=== PATIENT | male | born 1970 | race Two or more races ===

== ENCOUNTER 2025-03-09 16:29 | Inpatient (IN) | payer OTHER ==
[~2025-03-09] VITALS: Ht 162.6 cm; Wt 106.1 kg
[2025-03-09] MEDS ORDERED: AMLODIPINE-OLM1 EAC2 PO (18:11)
--- NOTE | 2025-03-09 18:25 | NUR ---
PACIENTE ALERTA Y ORIENTADO X3 REFIERE VENIR CON REFERIDO MEDICO POR PROBLEMAS CARIDACOS. SE SOPHIA S/V Y SE REALIZA EKG [facility] Y SE UBICA EN LA 13 CON MONITOR CARDIACO [facility] ORDEN MEDICA.
[2025-03-09] MEDS ORDERED: FAMOTIDINE/PF 20 MG in 0.9 % SODIUM CHLORIDE 8 ML IV PUSH ONE (18:45)
[2025-03-09] MEDS ORDERED: ACETAMINOPHEN 500 MG GEL..CAP PO ONE ×2 (18:45→19:17)
[2025-03-09] MEDS ORDERED: LABETALOL HCL 20MG/4ML SYRINGE IV ONE (18:45)
[2025-03-09] MEDS ORDERED: 0.9 % SODIUM CHLORIDE 1,000 ML IV SCH (19:00)
[2025-03-09] MEDS ORDERED: FAMOTIDINE/PF 20 MG/2 ML VIAL ONE (19:17)
[2025-03-09] MEDS ORDERED: LABETALOL HCL 100 MG/20 ML ML ONE (19:17)
[2025-03-09 20:44] LABS: BASO % 0.9 % (0.1-1.2); EOS # 0.03 (0.04-0.54); EOS % 0.3 % (0.7-7.0); LYMPH # 1.68 (1.18-3.74); LYMPH % 18.4 % (19.3-53.1); MEAN PLATELET VOLUME 9.60 fl (9.4-12.4); MONO # 0.63 (0.24-0.82); MONO % 6.9 % (4.7-12.5); NEUT # 6.71 (1.56-6.13); NEUT % 73.3 % (34.0-71.1); RED CELL DISTRIBUTION WIDTH 12.9 % (11.6-14.4)
--- NOTE | 2025-03-09 20:49 | NUR ---
PTE EVALUADO POR EL DR. PIMENTEL, PRESENTANDO ILDEFONSO PRESION, SE COLECTAN MUESTRAS DE [facility] MEDIDAS ASEPTICAS Y SE ADMINISTRA MEDICACION [facility] ORDEN MEDICA. CLIENTE Y FAMILIAR SON ORIENTADOS SOBRE PROCEDIMIENMTOS REALIZADOS Y SEGUIMIENTO DE TRATAMIENTO EN ER. CLIENTE ALERTA Y ORIENTADO AL MOMENTO DE LA INTERVENCION POR RN.
[2025-03-09 21:18] LABS: INR 0.99
[2025-03-09 21:38] LABS: ALT/SGPT 35.0 U/L (12-78); AST/SGOT 18.0 U/L (15-37); BILIRUBIN TOTAL 0.38 mg/dL (0.3-1.2); BUN CREA RATIO 12.0 (7.0-25.0); CREATININE SERUM 1.38 mg/dL (0.70-1.30); GFR 54.11; GLOBULINA 4.4 G/DL (2.4-3.5); GLUCOSE FASTING 108.0 mg/dL (65-100); OSMOLALITY SERUM 285.0 MOSM/KG (275-295); PHOSPHOKINASE CREATININE 184.0 U/L (39-308)
[2025-03-09] MEDS ORDERED: ONDANSETRON HCL 4 MG in 0.9 % SODIUM CHLORIDE 50 ML IV PRN (22:45)
[2025-03-09] MEDS ORDERED: NITROGLYCERIN IN 5 % DEXTROSE 250 ML IV SCH (22:45)
[2025-03-09] MEDS ORDERED: ACETAMINOPHEN 325 MG TABLET PO PRN (22:45)
[2025-03-10 00:45] LABS: URINE APPEARANCE Clear; URINE BILIRRUBIN Negative (NEGATIVE); URINE BLOOD Negative; URINE COLOR Yellow; URINE GLUCOSE Negative (NEGATIVE); URINE KETONE Negative (NEGATIVE); URINE LEUKOCYTE Negative; URINE NITRATE Negative; URINE PROTEIN Trace (NEGATIVE); URINE UROBILINOGEN 0.2 E.U./dl
[2025-03-10 00:47] LABS: URINE BACTERIA 18.0 uL (0.0-1933); URINE EPITHELIAL CELLS 1.9 uL (0.0-38.8); URINE RBC 9.5 uL (0.0-20.8); URINE WBC 3.8 uL (0.0-23.2)
[2025-03-10 00:48] LABS: URINE CAST 0.14 uL (0.0-1.40)
[2025-03-10 06:39] VITALS: BP 134/77; O2SAT 95
[2025-03-10 07:03] LABS: CHOL HDL RATIO 3.3 (0-5.0); HDL 51.0 mg/dl (40-60); LDL 105.0 mg/dl (0-130); TSH 3.13 uIU/mL (0.358-3.74); VLDL 12.0 (0-39)
[2025-03-10 08:38] VITALS: BP 127/73; O2SAT 95
[2025-03-10] MEDS ORDERED: NITROGLYCERIN IN 5 % DEXTROSE 250 ML IV SCH (08:45)
[2025-03-10] MEDS ORDERED: ACETAMINOPHEN 500 MG GEL..CAP PO PRN (08:45)
[2025-03-10] MEDS ORDERED: FAMOTIDINE/PF 20 MG/2 ML VIAL IV SCH (12:00)
[2025-03-10] MEDS ORDERED: LOSARTAN/HYDROCHLOROTHIAZIDE 1 UDTAB TABLET PO SCH (15:22)
[2025-03-10 15:29] VITALS: BP 146/72; O2SAT 96
[2025-03-10] MEDS ORDERED: ACETAMINOPHEN 500 MG GEL..CAP PO ONE (15:35)
[2025-03-10] MEDS ORDERED: NIFEDIPINE 30 MG TAB.SA.OSM PO SCH (17:00)
[2025-03-10 18:33] VITALS: BP 163/92
[2025-03-11 04:24] VITALS: BP 137/84; O2SAT 95
[2025-03-11 08:38] VITALS: BP 172/104; O2SAT 96
[2025-03-11] MEDS ORDERED: LOSARTAN/HYDROCHLOROTHIAZIDE 1 TAB TABLET PO SCH (09:00)
[2025-03-11] MEDS ORDERED: METOPROLOL SUCCINATE 100 MG TAB.SR.24H PO SCH (09:00)
[2025-03-11] MEDS ORDERED: HYDROCHLOROTHIAZIDE 12.5 MG CAPSULE PO STA (09:15)
[2025-03-11 17:42] VITALS: BP 135/87
[2025-03-12 02:45] VITALS: BP 129/78; O2SAT 99
[2025-03-12] MEDS ORDERED: HYDROCHLOROTHIAZIDE 12.5 MG CAPSULE PO SCH (09:00)
[2025-03-12 09:06] VITALS: BP 160/90; O2SAT 95
== END 2025-03-12 17:11 | disposition home or self-care (01) | DRG 305 ==
LOC: ER 16:29 → SEC-K 22:43 → MEDJ 03-10 15:31
PROVIDERS: General Practice; ADMIT Specialist/Technologist, Other Nephrology; ATTEND Specialist/Technologist, Other Nephrology
PROC: B24BYZZ Ultrasonography of Heart with Aorta using Other Contrast (ICD-10-PCS; principal; 2025-03-09)
PROC: 4A12X4Z Monitoring of Cardiac Electrical Activity, External Approach (ICD-10-PCS; 2025-03-11)
DX: I10 Essential (primary) hypertension (principal); I24.9 Acute ischemic heart disease, unspecified; E66.9 Obesity, unspecified; G47.33 Obstructive sleep apnea (adult) (pediatric)